=== PATIENT | male | born 1960 | race Caucasian/White ===

== ENCOUNTER 2017-01-08 10:22 | Emergency (ER) | payer OTHER ==
[~2017-01-08] VITALS: Ht 165.1 cm; Wt 72.6 kg
[~2017-01-08 10:22] MED LIST: 'PARAFON FORTE500 M1 PO; AMOXICILLIN500 MG PO; LOVASTATIN10 MG PO; MOTRIN800 MG PO; NAPROSYN500 MG PO; NORCO 5-325 TA1 EACH PO; PLAQUENIL200 MG PO; PREDNISONE10 MG PO; TRAMADOL HCL50 MG PO
[2017-01-08 10:32] VITALS: BP 122/74
[2017-01-08] MEDS ORDERED: ASPIR LOW81 MG PO (10:37)
[2017-01-08] MEDS ORDERED: FISH OIL PO (10:38)
[2017-01-08] MEDS ORDERED: CYCLOBENZAPRINE5 M3 PO (10:38)
[2017-01-08] MEDS ORDERED: CYCLOBENZAPRINE10 MG PO (12:41)
== END 2017-01-08 13:24 | disposition home or self-care (01) ==
LOC: ED 10:22
DX: G89.29 Other chronic pain (principal); M54.5 Low back pain; F17.200 Nicotine dependence, unspecified, uncomplicated; Z79.82 Long term (current) use of aspirin; Z79.899 Other long term (current) drug therapy

== ENCOUNTER → 2017-02-07 | Outpatient (CLI) | payer OTHER ==
[~2017-02-07] MED LIST changes: +ASPIR LOW81 MG PO; +CYCLOBENZAPRINE10 MG PO; +CYCLOBENZAPRINE5 M3 PO; +FISH OIL PO
== END | disposition home or self-care (01) ==
LOC: RAD 12:51
DX: M25.521 Pain in right elbow (principal); R22.31 Localized swelling, mass and lump, right upper limb

== ENCOUNTER 2019-04-09 10:29 | Emergency (ER) | payer OTHER ==
[~2019-04-09] VITALS: Ht 167.6 cm; Wt 74.8 kg
[~2019-04-09 10:29] MED LIST changes: +AUGMENTIN 875-875 MG PO
[2019-04-09 10:31] VITALS: BP 120/77
[2019-04-09] MEDS ORDERED: NAPROSYN500 MG PO (12:49)
[2019-04-09] MEDS ORDERED: METHOCARBAMOL500 M1 PO (12:49)
== END 2019-04-09 12:53 | disposition home or self-care (01) ==
LOC: ED 10:29
DX: M62.838 Other muscle spasm (principal); R22.41 Localized swelling, mass and lump, right lower limb; F17.200 Nicotine dependence, unspecified, uncomplicated; Z79.2 Long term (current) use of antibiotics; Z79.82 Long term (current) use of aspirin; Z79.899 Other long term (current) drug therapy

== ENCOUNTER → 2019-10-27 | Outpatient (CLI) | payer OTHER ==
[~2019-10-27] MED LIST changes: +METHOCARBAMOL500 M1 PO
[2019-10-27 17:00] LABS: BASO % 0.3 % (0.0-1.0); EOS # 0.1 10*3/uL (0.0-0.4); EOS % 0.8 % (1.0-4.0); HEMATOCRIT 50.8 % (42.0-52.0); LYMPH # 2.2 10*3/uL (1.3-4.4); LYMPH % 21.1 % (27.0-41.0); MEAN CELL VOLUME 93.2 fl (80.0-94.0); MEAN CORPUSCULAR HGB 31.9 pg (27.0-31.0); MEAN CORPUSCULAR HGB CONC 34.3 g/dl (33.0-37.0); MEAN PLATELET VOLUME 8.9 fl (9.6-12.3); MONO # 0.8 10*3/uL (0.1-1.0); MONO % 7.4 % (3.0-9.0); NEUT # 7.1 10*3/uL (2.3-7.9); NEUT % 70.1 % (47.0-73.0); PLATELET COUNT AUTOMATED 336 10*3/uL (130-400); RED BLOOD COUNT 5.45 10*6/uL (4.50-5.90); RED CELL DISTRI WIDTH 13.3 % (0-14.5); WHITE BLOOD COUNT 10.2 10*3/uL (4.8-10.8)
[2019-10-27 17:18] LABS: ALBUMIN 4.1 gm/dl (3.1-4.5); ALKALINE PHOSPHATASE 61 U/L (45-117); BUN 16 mg/dl (7-24); CHLORIDE 109 mmol/L (98-107); CREATININE 1.04 mg/dL (0.70-1.30); POTASSIUM 4.1 mmol/L (3.5-5.1); SGOT/AST 29 IU/L (3-35); SGPT/ALT 35 U/L (12-78); SODIUM 141 mmol/L (136-145); TOTAL PROTEIN 7.7 gm/dL (6.4-8.2)
== END | disposition home or self-care (01) ==
LOC: LAB 15:12 → US 15:30
PROVIDERS: Internal Medicine
DX: I70.8 Atherosclerosis of other arteries (principal); R60.0 Localized edema

== ENCOUNTER 2019-11-15 20:09 | Emergency (ER) | payer OTHER ==
[~2019-11-15] VITALS: Ht 165.1 cm; Wt 73.9 kg
[2019-11-15 20:48] LABS: BASO % 0.4 % (0.0-1.0); EOS # 0.2 10*3/uL (0.0-0.4); EOS % 1.9 % (1.0-4.0); HEMATOCRIT 46.8 % (42.0-52.0); LYMPH # 2.5 10*3/uL (1.3-4.4); LYMPH % 28.9 % (27.0-41.0); MEAN CELL VOLUME 92.5 fl (80.0-94.0); MEAN CORPUSCULAR HGB 31.8 pg (27.0-31.0); MEAN CORPUSCULAR HGB CONC 34.4 g/dl (33.0-37.0); MEAN PLATELET VOLUME 8.7 fl (9.6-12.3); MONO # 0.8 10*3/uL (0.1-1.0); MONO % 9.5 % (3.0-9.0); NEUT % 59.1 % (47.0-73.0); PLATELET COUNT AUTOMATED 282 10*3/uL (130-400); RED BLOOD COUNT 5.06 10*6/uL (4.50-5.90); WHITE BLOOD COUNT 8.5 10*3/uL (4.8-10.8)
[2019-11-15 21:05] LABS: ALBUMIN 3.7 gm/dl (3.1-4.5); ALKALINE PHOSPHATASE 46 U/L (45-117); BUN 12 mg/dl (7-24); CHLORIDE 106 mmol/L (98-107); CREATININE 0.93 mg/dL (0.70-1.30); POTASSIUM 3.6 mmol/L (3.5-5.1); SGOT/AST 24 IU/L (3-35); SGPT/ALT 50 U/L (12-78); SODIUM 139 mmol/L (136-145); TOTAL PROTEIN 7.4 gm/dL (6.4-8.2)
[2019-11-15 21:06] LABS: TROPONIN I < 0.015 ng/ml (<0.045)
[2019-11-15 21:57] VITALS: BP 118/74
[2019-11-15] MEDS ORDERED: ATIVAN1 MG PO (22:19)
== END 2019-11-15 22:16 | disposition home or self-care (01) ==
LOC: ED 20:09
PROVIDERS: Emergency Medicine Emergency Medical Services
DX: F41.1 Generalized anxiety disorder (principal); R06.02 Shortness of breath; R10.32 Left lower quadrant pain; R07.89 Other chest pain; J44.9 Chronic obstructive pulmonary disease, unspecified; E78.00 Pure hypercholesterolemia, unspecified; F17.210 Nicotine dependence, cigarettes, uncomplicated; Z79.899 Other long term (current) drug therapy; Z79.82 Long term (current) use of aspirin

== ENCOUNTER → 2020-04-26 | Outpatient (CLI) | payer OTHER ==
[~2020-04-26] MED LIST changes: +ATIVAN1 MG PO
[2020-04-26 14:46] LABS: HEMATOCRIT 49.5 % (42.0-52.0); MEAN CELL VOLUME 91.8 fl (80.0-94.0); MEAN CORPUSCULAR HGB CONC 33.7 g/dl (33.0-37.0); RED BLOOD COUNT 5.39 10*6/uL (4.50-5.90); RED CELL DISTRI WIDTH 13.2 % (0-14.5); WHITE BLOOD COUNT 7.9 10*3/uL (4.8-10.8)
[2020-04-26 15:27] LABS: CHLORIDE 107 mmol/L (98-107); POTASSIUM 3.7 mmol/L (3.5-5.1); SODIUM 141 mmol/L (136-145)
[2020-04-26 15:52] LABS: ALBUMIN 3.9 gm/dl (3.1-4.5); ALKALINE PHOSPHATASE 56 U/L (45-117); BUN 15 mg/dl (7-24); CREATININE 1.01 mg/dL (0.70-1.30); SGOT/AST 20 IU/L (3-35); SGPT/ALT 47 U/L (12-78); TOTAL PROTEIN 7.6 gm/dL (6.4-8.2)
[2020-04-27 08:08] LABS: HEP B CORE AB, IGM Negative (Negative); HEPATITIS B SURFACE AG Negative (Negative); HEPATITIS C VIRUS ANTIBODY <0.1 s/co (0.0-0.9)
== END | disposition home or self-care (01) ==
LOC: LAB 13:56
PROVIDERS: ATTEND Physician Assistant
DX: R10.31 Right lower quadrant pain (principal); F41.9 Anxiety disorder, unspecified; G62.9 Polyneuropathy, unspecified

== ENCOUNTER 2022-01-03 02:00 | Emergency (ER) | payer OTHER ==
[2022-01-03 02:34] VITALS: BP 154/82
[2022-01-03 02:40] LABS: BASO % 0.3 % (0.0-1.0); EOS # 0.1 10*3/uL (0.0-0.4); EOS % 0.7 % (1.0-4.0); HEMATOCRIT 33.8 % (42.0-52.0); LYMPH # 1.2 10*3/uL (1.3-4.4); LYMPH % 9.1 % (27.0-41.0); MEAN CELL VOLUME 87.6 fl (80.0-94.0); MEAN CORPUSCULAR HGB 27.5 pg (27.0-31.0); MEAN CORPUSCULAR HGB CONC 31.4 g/dl (33.0-37.0); MEAN PLATELET VOLUME 8.3 fl (9.6-12.3); MONO # 0.8 10*3/uL (0.1-1.0); MONO % 5.9 % (3.0-9.0); NEUT # 11.2 10*3/uL (2.3-7.9); NEUT % 83.6 % (47.0-73.0); PLATELET COUNT AUTOMATED 420 10*3/uL (130-400); RED BLOOD COUNT 3.86 10*6/uL (4.50-5.90); RED CELL DISTRI WIDTH 14.5 % (0-14.5); WHITE BLOOD COUNT 13.4 10*3/uL (4.8-10.8)
[2022-01-03 02:57] LABS: ALKALINE PHOSPHATASE 73 U/L (45-117); BUN 14 mg/dl (7-24); CHLORIDE 105 mmol/L (98-107); CREATININE 0.89 mg/dL (0.70-1.30); POTASSIUM 3.8 mmol/L (3.5-5.1); SGOT/AST 17 IU/L (3-35); SGPT/ALT 32 U/L (12-78); SODIUM 138 mmol/L (136-145); TOTAL PROTEIN 7.3 gm/dL (6.4-8.2)
[2022-01-03 03:25] LABS: BILIRUBIN Negative (Negative); BLOOD Trace-Intact (Negative); CLARITY Clear (Clear); COLOR Yellow (Yellow); GLUCOSE Negative (Negative); KETONE Negative (Negative); LEUKO ESTERASE Negative (Negative); NITRITE Negative (Negative); PH 6.5 (4.5-8.0); UROBILINOGEN 0.2 E.U./dl (0.0-1.0)
[2022-01-03 03:35] LABS: RBC 16-20 rbc/hpf (0-2)
== END 2022-01-03 04:31 | disposition home or self-care (01) ==
LOC: ED 02:00
PROVIDERS: Internal Medicine
DX: M54.50 Low back pain, unspecified (principal); Z79.899 Other long term (current) drug therapy; Z79.82 Long term (current) use of aspirin

== ENCOUNTER 2022-04-21 18:27 | Emergency (ER) | payer OTHER ==
[~2022-04-21] VITALS: Ht 157.4 cm; Wt 74.8 kg
[2022-04-21 18:49] VITALS: BP 109/85
[2022-04-21 19:57] LABS: ACT PARTIAL THROMBO TIME 28.5 SECONDS (20.0-32.1); INTERNATIONAL NORM RATIO 1.3 (2.0-3.5)
[2022-04-21 20:12] LABS: CREATININE 1.49 mg/dL (0.70-1.30); POTASSIUM 3.6 mmol/L (3.5-5.1); TOTAL PROTEIN 5.4 gm/dL (6.4-8.2)
== END 2022-04-21 20:29 | disposition left against medical advice (07) ==
LOC: ED 18:27
PROVIDERS: Emergency Medicine
DX: R06.02 Shortness of breath (principal); C34.90 Malignant neoplasm of unspecified part of unspecified bronchus or lung; I99.8 Other disorder of circulatory system; Z85.46 Personal history of malignant neoplasm of prostate; Z79.899 Other long term (current) drug therapy; Z79.2 Long term (current) use of antibiotics; Z79.82 Long term (current) use of aspirin